=== PATIENT | male | born 1980 | race Caucasian/White ===

== ENCOUNTER 2021-03-21 19:58 | Inpatient (IN) | payer OTHER ==
[~2021-03-21] VITALS: Ht 185.4 cm; Wt 84.8 kg
[2021-03-21] MEDS ORDERED: Z GUARD REMEDY PASTE 57 GM TUBE TOP PRN (23:30)
[2021-03-21 23:53] VITALS: BP 115/73
[2021-03-22] MEDS ORDERED: NALO4SPR NS (00:02)
[2021-03-22] MEDS ORDERED: MELA5TAB PO (00:02)
[2021-03-22] MEDS ORDERED: ACET-2030 PO (00:02)
[2021-03-22] MEDS ORDERED: GABA600T12 PO (00:02)
[2021-03-22] MEDS ORDERED: POLY119P2 PO (00:02)
[2021-03-22] MEDS ORDERED: TRAZ-182 PO (00:02)
[2021-03-22] MEDS ORDERED: ATOR40TA PO (00:02)
[2021-03-22] MEDS ORDERED: ASPI81TA31 PO (00:02)
[2021-03-22] MEDS ORDERED: LOSA50TA39 PO (00:02)
[2021-03-22] MEDS ORDERED: SENN-261 PO (00:02)
[2021-03-22] MEDS ORDERED: METH-806 PO (00:02)
[2021-03-22] MEDS ORDERED: DOXY-326 PO (00:02)
[2021-03-22] MEDS ORDERED: ONDA4TAB11 PO (00:15)
[2021-03-22] MEDS ORDERED: AMLO-212 PO (00:15)
[2021-03-22] MEDS ORDERED: FAMO-132 PO (00:15)
[2021-03-22 05:13] VITALS: BP 118/62
--- NOTE | 2021-03-22 06:17 | NUR ---
At 2308H, admitted 40 y/o male to rehab with dx of s/p right BKA. He is alert and oriented x4, able to make needs known. Pain tolerable at this time, pain medication given in [facility] before transfer. Admission process done and belongings list filled up. Medications from patient put in sealed bag, signed by pt, and will be given to pharmacy. He refused skin assessment on right BKA and wants it done later in AM. MRSA swab taken and sent to lab. Fred Singleton NP informed of admission and med recon. Dr. Bell also made aware of admission. Urinal at bedside. All needs attended. Call light placed within reach. Will endorse to next shift for continuity of care.
[2021-03-22] MEDS ORDERED: FAMOTIDINE 20 MG TABLET PO PRN (09:15)
[2021-03-22] MEDS ORDERED: ONDANSETRON ODT 4 MG TAB.RAPDIS SL PRN (09:15)
[2021-03-22] MEDS ORDERED: DEXTROSE 50% 50 ML DISP.SYRIN IV PRN (09:45)
[2021-03-22] MEDS ORDERED: INSU3INS6 SQ (09:52)
[2021-03-22] MEDS ORDERED: METF-440 PO (09:58)
[2021-03-22] MEDS ORDERED: DORZ10DR13 EACHEYE (09:59)
[2021-03-22 10:00] LABS: HEMATOCRIT 31.6 % (36.7-47.1); MEAN CORPUSCULAR HEMOGLOBIN 30.4 uug (23.8-33.4); MEAN CORPUSCULAR VOLUME 89.4 fL (73.0-96.2); PLATELET COUNT (AUTO) 628 K/uL (152-348)
[2021-03-22] MEDS: METHOCARBAMOL 500 MG TABLET PO SCH ×3 (10:00→17:27)
[2021-03-22] MEDS: MIRALAX 17 GM POWD.PACK PO SCH ×3 (10:00→17:28)
[2021-03-22] MEDS: OXYCODONE HCL 5 MG TABLET PO PRN ×2 (10:00→14:51)
[2021-03-22] MEDS: GABAPENTIN 400 MG CAPSULE PO SCH ×3 (10:01→17:27)
[2021-03-22] MEDS: SENNOSIDES 1 TABLET PO SCH (10:01)
[2021-03-22 10:21] LABS: BILIRUBIN,TOTAL 0.2 mg/dL (0.2-1.0); CREATININE 0.7 mg/dL (0.6-1.3); POTASSIUM 4.4 mmol/L (3.5-5.1)
[2021-03-22] MEDS: MORPHINE SULFATE SR 15 MG TABLET.SA PO SCH ×2 (11:14→22:43)
[2021-03-22] MEDS: BLOOD SUGAR DIAGNOSTIC 1 EACH STRIP VI SCH ×3 (11:18→21:00)
[2021-03-22] MEDS: INSULIN REGULAR, HUMAN 300 UNIT/3 ML VIAL SQ PRN ×2 (11:20→16:52)
[2021-03-22] MEDS ORDERED: INSU100I34 SQ (13:54)
[2021-03-22] MEDS ORDERED: INSULIN LISPRO 300 UNIT/3 ML VIAL SQ PRN (14:00)
[2021-03-22 15:49] VITALS: BP 108/71
[2021-03-22] MEDS ORDERED: DORZOLAMIDE/TIMOLOL OPHT DROP 10 ML BOTTLE EACHEYE SCH (17:00)
[2021-03-22] MEDS ORDERED: METFORMIN HCL 500 MG TABLET PO SCH (17:00)
--- NOTE | 2021-03-22 18:33 | NUR ---
patient remained stable during the shift. no discomfort identified. Photo taken of the incision site, and in chart. Incision site, intact and no bleeding identified. Informed dietary patient is a vegetarian. all due meds given. Needs attended. kept safe and frequent checks done. Kept comfortable. Will continue to monitor.
--- NOTE | 2021-03-22 18:35 | NUR ---
Insulin given per sliding scale during the shift as ordered. Will continue to monitor.
[2021-03-22 20:06] VITALS: BP 115/67
[2021-03-22] MEDS ORDERED: Medication Not On Formulary EA (Melatonin 10 MG) PO SCH (21:00)
[2021-03-22] MEDS: TRAZODONE 50 MG TABLET PO SCH (21:01)
[2021-03-22] MEDS: MELATONIN 3 MG TABLET PO SCH (21:01)
[2021-03-22] MEDS: INSULIN GLARGINE,HUM 300 UNITS/3 ML CARTRIDGE SQ SCH (21:04)
[2021-03-22] MEDS: INSULIN REGULAR, HUMAN 300 UNITS/3 ML VIAL SQ PRN (21:05)
[2021-03-23 04:06] VITALS: BP 100/52
[2021-03-23] MEDS: OXYCODONE HCL 5 MG TABLET PO PRN ×2 (05:28→14:46)
--- NOTE | 2021-03-23 06:41 | NUR ---
PATIENT REMAINED COMFORTABLE AND STABLE DURING THE SHIFT. OXYCODONE PRN GIVEN. REFUSED ACCUCHECK IN THE AM, REQUESTING TO HAV EIT DONE AFTER 0730H. INCISION SITE REMAINED INTACT, NO BLEEDING NOTED. KEPT CALL LIGHT WITHIN REACH. ALL DUE MEDS GIVEN ORDERED. SAFETY PRECAUTION MAINTAINED. FREQUENT CHECKS DONE. ALL NEEDS ATTENDED. ENDORSED TO THE NEXT SHIFT FOR CONTINUITY OF CARE.
[2021-03-23 07:30] VITALS: BP 104/68
[2021-03-23] MEDS: BLOOD SUGAR DIAGNOSTIC 1 EACH STRIP VI SCH ×4 (07:43→20:12)
[2021-03-23] MEDS: INSULIN REGULAR, HUMAN 300 UNIT/3 ML VIAL SQ PRN ×3 (07:50→16:52)
[2021-03-23] MEDS: METHOCARBAMOL 500 MG TABLET PO SCH ×3 (08:13→16:34)
[2021-03-23] MEDS: GABAPENTIN 400 MG CAPSULE PO SCH ×3 (08:13→16:34)
[2021-03-23] MEDS: MORPHINE SULFATE SR 15 MG TABLET.SA PO SCH ×2 (08:13→20:10)
[2021-03-23] MEDS: LOSARTAN POTASSIUM 50 MG TABLET PO SCH (08:16)
[2021-03-23] MEDS: MIRALAX 17 GM POWD.PACK PO SCH ×2 (08:16→16:49)
[2021-03-23] MEDS: SENNOSIDES 1 TABLET PO SCH (08:17)
[2021-03-23] MEDS: AMLODIPINE 5 MG TABLET PO SCH (08:17)
--- NOTE | 2021-03-23 14:20 | NUR ---
Received patient alert and oriented x 4, denies of any pain at this time, no s/s of distress. Able to follow simple commands. Patient in room air, saturating at 95% Patient went off the unit for an hour for therapy, tolerated well. All needs met in a timely manner. Will continue to monitor.
[2021-03-23 16:00] VITALS: BP 114/79
[2021-03-23] MEDS: MELATONIN 3 MG TABLET PO SCH (20:09)
[2021-03-23] MEDS: INSULIN REGULAR, HUMAN 300 UNITS/3 ML VIAL SQ PRN (20:17)
[2021-03-23] MEDS: INSULIN GLARGINE,HUM 300 UNITS/3 ML CARTRIDGE SQ SCH (20:17)
[2021-03-23 20:20] VITALS: BP 107/69
[2021-03-23] MEDS: TRAZODONE 50 MG TABLET PO SCH (21:17)
[2021-03-23] MEDS: MUPIROCIN 2% OINT 22 GM TUBE NS SCH (21:18)
[2021-03-23] MEDS ORDERED: MUPIROCIN 2% OINT 22 GM TUBE ONE (21:21)
--- NOTE | 2021-03-23 21:29 | NUR ---
Received pt resting in bed. AAO x4. No acute distress noted. Due meds given as ordered. Blood sugar 391, insulin coverage given as per sliding scale. Assisted to the bathroom using walker. Pt safely back in bed. Safety measures maintained. Call light within reach. Will continue to monitor.
--- NOTE | 2021-03-23 21:33 | NUR ---
Received MRSA nares result, positive. Notified [employer] SIGNAL INTELLIGENCE ANALYST with order for Bactroban oint BID x 7 days. Carried out order.
[2021-03-24] MEDS: OXYCODONE HCL 5 MG TABLET PO PRN ×3 (04:09→16:26)
[2021-03-24 04:31] VITALS: BP 100/62
[2021-03-24 07:51] VITALS: BP 109/79
[2021-03-24] MEDS: MUPIROCIN 2% OINT 22 GM TUBE NS SCH ×2 (08:01→21:07)
[2021-03-24] MEDS: BLOOD SUGAR DIAGNOSTIC 1 EACH STRIP VI SCH ×4 (08:01→21:02)
[2021-03-24] MEDS: GABAPENTIN 400 MG CAPSULE PO SCH ×3 (08:02→17:06)
[2021-03-24] MEDS: SENNOSIDES 1 TABLET PO SCH ×2 (08:02→09:00)
[2021-03-24] MEDS: MIRALAX 17 GM POWD.PACK PO SCH ×3 (08:02→16:28)
[2021-03-24] MEDS: METHOCARBAMOL 500 MG TABLET PO SCH ×3 (08:03→17:06)
[2021-03-24] MEDS: MORPHINE SULFATE SR 15 MG TABLET.SA PO SCH ×2 (08:04→20:58)
[2021-03-24] MEDS: AMLODIPINE 5 MG TABLET PO SCH (08:15)
[2021-03-24] MEDS: LOSARTAN POTASSIUM 50 MG TABLET PO SCH (08:15)
[2021-03-24] MEDS: INSULIN REGULAR, HUMAN 300 UNIT/3 ML VIAL SQ PRN ×2 (11:46→16:28)
--- NOTE | 2021-03-24 11:57 | NUR ---
INDIVIDUALIZED PLAN OF CARE
[2021-03-24 15:24] VITALS: BP 112/74
--- NOTE | 2021-03-24 18:00 | NUR ---
Patient remains alert, oriented x4, not in any form of distress. Complained of pain on right leg given PRN pain medication as ordered with noted relief. Patient refused wound assessment and dressing change, explained risks and benefits but patient still refused. Assisted with his needs. Call light and frequently used items placed within patient's reach.
[2021-03-24 20:00] VITALS: BP 107/60
[2021-03-24] MEDS: TRAZODONE 50 MG TABLET PO SCH (20:57)
[2021-03-24] MEDS: MELATONIN 3 MG TABLET PO SCH (20:57)
[2021-03-24] MEDS: INSULIN REGULAR, HUMAN 300 UNITS/3 ML VIAL SQ PRN (21:04)
[2021-03-24] MEDS: INSULIN GLARGINE,HUM 300 UNITS/3 ML CARTRIDGE SQ SCH (21:05)
[2021-03-25 04:00] VITALS: BP 104/60
[2021-03-25] MEDS: BLOOD SUGAR DIAGNOSTIC 1 EACH STRIP VI SCH ×4 (06:38→20:54)
[2021-03-25] MEDS: OXYCODONE HCL 5 MG TABLET PO PRN ×3 (06:41→22:41)
[2021-03-25 08:00] VITALS: BP 135/68
[2021-03-25] MEDS: METHOCARBAMOL 500 MG TABLET PO SCH ×3 (08:32→17:12)
[2021-03-25] MEDS: GABAPENTIN 400 MG CAPSULE PO SCH ×3 (08:32→17:12)
[2021-03-25] MEDS: SENNOSIDES 1 TABLET PO SCH (08:33)
[2021-03-25] MEDS: MIRALAX 17 GM POWD.PACK PO SCH ×2 (08:41→17:00)
[2021-03-25] MEDS: LOSARTAN POTASSIUM 50 MG TABLET PO SCH (08:41)
[2021-03-25] MEDS: MUPIROCIN 2% OINT 22 GM TUBE NS SCH ×2 (08:49→20:58)
[2021-03-25] MEDS: AMLODIPINE 5 MG TABLET PO SCH (09:00)
[2021-03-25] MEDS: MORPHINE SULFATE SR 15 MG TABLET.SA PO SCH ×2 (09:47→20:52)
[2021-03-25] MEDS: INSULIN REGULAR, HUMAN 300 UNIT/3 ML VIAL SQ PRN (11:45)
[2021-03-25 16:17] VITALS: BP 118/79
[2021-03-25 20:07] VITALS: BP 109/72
[2021-03-25] MEDS: TRAZODONE 50 MG TABLET PO SCH (20:51)
[2021-03-25] MEDS: MELATONIN 3 MG TABLET PO SCH (20:51)
[2021-03-25] MEDS: INSULIN GLARGINE,HUM 300 UNITS/3 ML CARTRIDGE SQ SCH (20:55)
[2021-03-25] MEDS: INSULIN REGULAR, HUMAN 300 UNITS/3 ML VIAL SQ PRN (20:57)
[2021-03-26 04:25] VITALS: BP 108/67
[2021-03-26] MEDS: BLOOD SUGAR DIAGNOSTIC 1 EACH STRIP VI SCH ×4 (07:09→21:37)
[2021-03-26] MEDS: OXYCODONE HCL 5 MG TABLET PO PRN ×3 (07:12→16:37)
[2021-03-26 07:30] VITALS: BP 105/69
[2021-03-26] MEDS: GABAPENTIN 400 MG CAPSULE PO SCH ×3 (08:37→16:37)
[2021-03-26] MEDS: MORPHINE SULFATE SR 15 MG TABLET.SA PO SCH ×2 (08:38→21:31)
[2021-03-26] MEDS: MUPIROCIN 2% OINT 22 GM TUBE NS SCH ×2 (08:38→21:54)
[2021-03-26] MEDS: LOSARTAN POTASSIUM 50 MG TABLET PO SCH (08:38)
[2021-03-26] MEDS: METHOCARBAMOL 500 MG TABLET PO SCH ×3 (08:38→16:37)
[2021-03-26] MEDS: SENNOSIDES 1 TABLET PO SCH (08:39)
[2021-03-26] MEDS: MIRALAX 17 GM POWD.PACK PO SCH ×2 (08:40→16:37)
[2021-03-26] MEDS: INSULIN REGULAR, HUMAN 300 UNIT/3 ML VIAL SQ PRN ×2 (11:44→21:58)
--- NOTE | 2021-03-26 13:04 | NUR ---
INTERDISCIPLINARY TEAM CONFERENCE
[2021-03-26 16:05] VITALS: BP 101/63
--- NOTE | 2021-03-26 18:27 | NUR ---
PATIENT REMAINED STABLE DURING THE SHIFT. REPORTED ACCUCHECK OF 51, 56 MG/DL TO DR MELGAR, WENT UP TO 79MG/DL AFTER 12OZ ON ORANGE JUICE, ORDER TO CHANGE FROM AGGRESSIVE TO MILD SLIDING SCALE. PATIENT IS ALERT, NO CHANGE OF MENTAL STATUS IDENTIFIED. SKIN INTACT, NO BLEEDING TO THE INCISION SITE. ALL NEEDS ATTENDED. ASPIRATION PRECAUTION MAINTAINED. NO DISTRESS IDENTIFIED. SAFETY PRECAUTION MAINTAINED. WILL ENDORSE TO THE NEXT SHIFT FOR CONTINUITY OF CARE.
[2021-03-26] MEDS ORDERED: DEXTROSE 50% 50 ML DISP.SYRIN IV PRN (18:45)
[2021-03-26 20:00] VITALS: BP 109/66
[2021-03-26] MEDS: MELATONIN 3 MG TABLET PO SCH (21:30)
[2021-03-26] MEDS: TRAZODONE 50 MG TABLET PO SCH (21:32)
[2021-03-26] MEDS: INSULIN GLARGINE,HUM 300 UNITS/3 ML CARTRIDGE SQ SCH (21:48)
--- NOTE | 2021-03-27 01:49 | NUR ---
Pt. is received awake in his room. Pt. is alert, oriented x 4 to person, place, environment. Pt. affect is demanding, accusatory, anxious, impatient towards staff. Blood glucose is 380, Lantus 21 units given as schedule, and 10 units of regular insulin given per sliding scale, orange juice provided. Compliant with medications. Right below knee amputation, no signs of infection. Pt. ambulates with crutches. Continent of bladder and bowel. Fall and safety precautions implemented.
[2021-03-27 04:18] VITALS: BP 101/59
[2021-03-27] MEDS: OXYCODONE HCL 5 MG TABLET PO PRN ×3 (06:05→16:34)
--- NOTE | 2021-03-27 06:08 | NUR ---
Patient is given Oxycodone 10 mg at 06:05 for rigth knee pain rated 9 on the scale of 1 to 10, will be monitored for effectiveness.
[2021-03-27] MEDS: BLOOD SUGAR DIAGNOSTIC 1 EACH STRIP VI SCH ×4 (06:53→20:27)
[2021-03-27 07:55] LABS: HEMATOCRIT 32.4 % (36.7-47.1); MEAN CORPUSCULAR HEMOGLOBIN 30.2 uug (23.8-33.4); MEAN CORPUSCULAR VOLUME 89.5 fL (73.0-96.2); PLATELET COUNT (AUTO) 437 K/uL (152-348)
[2021-03-27 08:11] LABS: BILIRUBIN,TOTAL 0.2 mg/dL (0.2-1.0); CREATININE 0.7 mg/dL (0.6-1.3); MAGNESIUM 1.9 mg/dL (1.8-2.4); PHOSPHOROUS 4.8 mg/dL (2.5-4.9); POTASSIUM 4.1 mmol/L (3.5-5.1); TOTAL PROTEIN, SERUM 6.6 g/dL (6.4-8.2)
[2021-03-27] MEDS: METHOCARBAMOL 500 MG TABLET PO SCH ×3 (08:17→16:33)
[2021-03-27] MEDS: GABAPENTIN 400 MG CAPSULE PO SCH ×3 (08:18→16:33)
[2021-03-27] MEDS: SENNOSIDES 1 TABLET PO SCH (08:18)
[2021-03-27] MEDS: MIRALAX 17 GM POWD.PACK PO SCH ×2 (08:18→16:35)
[2021-03-27] MEDS: MORPHINE SULFATE SR 15 MG TABLET.SA PO SCH ×2 (08:18→20:22)
[2021-03-27] MEDS: LOSARTAN POTASSIUM 50 MG TABLET PO SCH (08:19)
[2021-03-27] MEDS: MUPIROCIN 2% OINT 22 GM TUBE NS SCH ×2 (08:19→20:22)
[2021-03-27 08:38] VITALS: BP 98/57
[2021-03-27 09:15] LABS: THYROID STIMULATING HORMONE 1.92 mIU/mL (0.358-3.740)
[2021-03-27] MEDS: INSULIN REGULAR, HUMAN 300 UNIT/3 ML VIAL SQ PRN ×3 (11:45→20:32)
[2021-03-27 15:21] VITALS: BP 111/75
--- NOTE | 2021-03-27 18:20 | NUR ---
patient remained stable during the shift. Assisted with all his needs. Kept call light within reach. All due meds given. No distress identified. Safety measures maintained. Dressing changed to the R BKA, no drainage noted, no bleeding identified. Insulin per sliding scale given x1 during the shift. pain medication given as ordered. Will endorse to the next shift for continuity of care.
[2021-03-27 20:00] VITALS: BP 107/73
[2021-03-27] MEDS: MELATONIN 3 MG TABLET PO SCH (20:22)
[2021-03-27] MEDS: TRAZODONE 50 MG TABLET PO SCH (20:22)
[2021-03-27] MEDS: INSULIN GLARGINE,HUM 300 UNITS/3 ML CARTRIDGE SQ SCH (20:33)
[2021-03-28] MEDS: OXYCODONE HCL 5 MG TABLET PO PRN ×2 (00:55→11:34)
[2021-03-28 04:00] VITALS: BP 107/75
--- NOTE | 2021-03-28 04:50 | NUR ---
AAOx4 OOB in wheelchair independently. Patient has a right BKA. Dressing intact. On pain management. MS contin 15mg given as scheduled. Needs attended. Will monitor patient. VSS. Voiding well in the urinal. No distress noted.
[2021-03-28] MEDS: MORPHINE SULFATE SR 15 MG TABLET.SA PO SCH ×3 (05:31→21:29)
[2021-03-28] MEDS: INSULIN REGULAR, HUMAN 300 UNIT/3 ML VIAL SQ PRN ×4 (05:44→21:00)
--- NOTE | 2021-03-28 06:27 | NUR ---
Awaken this am. MS contin given as scheduled. Patient accucheck 476 @ 0525 per patient's request. 10 units given per protocol. Will call MD. Dr Bertrand Briones paged, awaiting for answer. Answering service made aware for him to call back. Still no answer. Dr Thurston paged x2 still no answer. Texted him, no response yet. Accucheck repeated @ 0630 it was 473. die caster aware.Patient asymptomatic.
[2021-03-28] MEDS: BLOOD SUGAR DIAGNOSTIC 1 EACH STRIP VI SCH ×4 (06:37→20:51)
--- NOTE | 2021-03-28 07:30 | NUR ---
informed Dr. Otilia NP accucheck reading is 399mg/dL at 0730H, order to give 10units of insulin. Will continue to monitor.
[2021-03-28 07:40] VITALS: BP 97/47
[2021-03-28] MEDS: METHOCARBAMOL 500 MG TABLET PO SCH ×3 (08:18→16:33)
[2021-03-28] MEDS: GABAPENTIN 400 MG CAPSULE PO SCH ×3 (08:18→16:34)
[2021-03-28] MEDS: MUPIROCIN 2% OINT 22 GM TUBE NS SCH ×2 (08:18→21:01)
[2021-03-28] MEDS: MIRALAX 17 GM POWD.PACK PO SCH ×2 (08:18→16:33)
[2021-03-28] MEDS: SENNOSIDES 1 TABLET PO SCH (08:18)
[2021-03-28] MEDS: LOSARTAN POTASSIUM 50 MG TABLET PO SCH (08:19)
[2021-03-28 15:14] VITALS: BP 115/69
--- NOTE | 2021-03-28 18:08 | NUR ---
Patient remained stable during the shift, no acute distress [id number]. at 1200H, accucheck is 63mg/dL, no insulin coverage need, and at 1630H 277mg/dL insulin given per sliding scale. patient is alert/orientedx4, no changes in mental status. The patient refused dressing change to the incision site, no drainage noted. All due meds given. Kept safe. Call light within reach. No distress identified. Will endorse to the next shift for continuity of care.
--- NOTE | 2021-03-28 19:30 | NUR ---
NSG: Received patient alert and oriented x 4, sitting in w/c in the [address] with sister. patient denies any pain at this time, no s/s of distress. Able to follow commands.v/s wnl. Patient went off the unit with sister for 30 minutes. Will continue to monitor.
[2021-03-28 20:42] VITALS: BP 105/72
[2021-03-28] MEDS: MELATONIN 3 MG TABLET PO SCH (20:52)
[2021-03-28] MEDS: TRAZODONE 50 MG TABLET PO SCH (20:52)
[2021-03-28] MEDS: INSULIN GLARGINE,HUM 300 UNITS/3 ML CARTRIDGE SQ SCH (20:57)
--- NOTE | 2021-03-28 21:30 | NUR ---
due meds and insulin sliding scale given. hs snack given. patient resting in bed comfortably.
[2021-03-29 04:33] VITALS: BP 101/64
[2021-03-29] MEDS: MORPHINE SULFATE SR 15 MG TABLET.SA PO SCH ×3 (05:18→21:24)
--- NOTE | 2021-03-29 06:07 | NUR ---
NSG: Patient remain alert, oriented x4. denies pain or discomfort at this time. Patient refused wound assessment and dressing change, Assisted with his needs. Call light and frequently used items placed within patient's reach. resting in bed comfortably.continue plan of care.
[2021-03-29] MEDS: BLOOD SUGAR DIAGNOSTIC 1 EACH STRIP VI SCH ×4 (06:21→20:29)
[2021-03-29] MEDS: INSULIN REGULAR, HUMAN 300 UNIT/3 ML VIAL SQ PRN ×3 (07:49→20:24)
[2021-03-29] MEDS: OXYCODONE HCL 5 MG TABLET PO PRN ×2 (08:01→16:38)
[2021-03-29] MEDS: GABAPENTIN 400 MG CAPSULE PO SCH ×3 (08:02→16:32)
[2021-03-29] MEDS: SENNOSIDES 1 TABLET PO SCH (08:02)
[2021-03-29] MEDS: METHOCARBAMOL 500 MG TABLET PO SCH ×3 (08:02→16:32)
[2021-03-29] MEDS: MUPIROCIN 2% OINT 22 GM TUBE NS SCH ×2 (08:02→20:20)
[2021-03-29] MEDS: MIRALAX 17 GM POWD.PACK PO SCH ×3 (08:02→16:32)
[2021-03-29] MEDS: LOSARTAN POTASSIUM 25 MG TABLET PO SCH ×2 (08:03→08:22)
[2021-03-29 08:20] VITALS: BP 106/68
--- NOTE | 2021-03-29 15:36 | NUR ---
patient is alert, oriented x4, no events noted, offered patient to assess his surgery site below knee, patient stated it is clean and dry, inspected foam dressing, intact, no discharge, clean and dry.
[2021-03-29 16:47] VITALS: BP 96/65
--- NOTE | 2021-03-29 19:35 | NUR ---
NSG: Received patient alert and oriented x 4, lying on bed watching tv. patient denies any pain at this time, no s/s of distress. Able to follow commands.v/s wnl. Will continue to monitor.
[2021-03-29] MEDS: MELATONIN 3 MG TABLET PO SCH (20:20)
[2021-03-29] MEDS: TRAZODONE 50 MG TABLET PO SCH (20:20)
[2021-03-29] MEDS: INSULIN GLARGINE,HUM 300 UNITS/3 ML CARTRIDGE SQ SCH (20:23)
[2021-03-29 20:34] VITALS: BP 104/64
[2021-03-30 04:57] VITALS: BP 101/67
[2021-03-30] MEDS: MORPHINE SULFATE SR 15 MG TABLET.SA PO SCH ×3 (06:11→21:53)
[2021-03-30] MEDS: BLOOD SUGAR DIAGNOSTIC 1 EACH STRIP VI SCH ×4 (06:11→21:55)
--- NOTE | 2021-03-30 06:32 | NUR ---
NSG: Patient remain alert, oriented x4. denies pain or discomfort at this time. Patient refused wound assessment and dressing change. Call light and frequently used items placed within patient's reach. resting in bed comfortably.continue plan of care.
--- NOTE | 2021-03-30 07:00 | NUR ---
PATIENT IS ALERT/ORIENTEDX4, NO DISTRESS IDENTIFIED. DRESSING INTACT, NO DRAINAGE NOTED. WILL CONTINUE TO MONITOR.
[2021-03-30 07:32] VITALS: BP 106/71
[2021-03-30] MEDS: LOSARTAN POTASSIUM 25 MG TABLET PO SCH (08:20)
[2021-03-30] MEDS: MUPIROCIN 2% OINT 22 GM TUBE NS SCH ×2 (08:20→21:53)
[2021-03-30] MEDS: MIRALAX 17 GM POWD.PACK PO SCH ×2 (08:20→16:45)
[2021-03-30] MEDS: GABAPENTIN 400 MG CAPSULE PO SCH ×3 (08:20→16:45)
[2021-03-30] MEDS: METHOCARBAMOL 500 MG TABLET PO SCH ×3 (08:21→16:44)
[2021-03-30] MEDS: SENNOSIDES 1 TABLET PO SCH (08:21)
[2021-03-30] MEDS: INSULIN REGULAR, HUMAN 300 UNIT/3 ML VIAL SQ PRN ×3 (11:22→21:57)
[2021-03-30 15:37] VITALS: BP 98/61
--- NOTE | 2021-03-30 18:22 | NUR ---
PATIENT REMAINED STABLE. OFFERED TO CHANGE DRESSING, REFUSED TO BE CHANGED, NO DRAINAGE IDENTIFIED, DRESSING REMAINED DRY THE WHOLE SHIFT. NO DISTRESS IDENTIFIED DURING THE SHIFT. SAFETY MEASURES MAINTAINED. KEPT CALL LIGHT WITHIN REACH. ALL NEEDS ATTENDED. ALL DUE MEDS GIVEN. FREQUENT ROUNDING DONE. WILL ENDORSE TO THE NEXT SHIFT FOR CONTINUITY OF CARE.
--- NOTE | 2021-03-30 19:30 | NUR ---
RECEIVED PT AWAKE, ALERT AND ORIENTEDX4. PT IN NO ACUTE DISTRESS. PT CAN MAKE HIS NEEDS KNOWN. SAFETY AND COMFORT PROVIDED. WILL CONTINUE TO MONITOR.
[2021-03-30 20:14] VITALS: BP 107/59
--- NOTE | 2021-03-30 21:30 | NUR ---
PT BLOOD SUGAR WAS 431. INSULIN PROTOCOL INITIATED. NOTIFY DR. SVETLANA FRAZIER. NO NEW ORDERS. PT IN NO ACUTE DISTRESS. PT NO SIGNS AND SYMPTOMS OF HYPERGLYCEMIA. WILL CONTINUE TO MONITOR.
[2021-03-30] MEDS: MELATONIN 3 MG TABLET PO SCH (21:53)
[2021-03-30] MEDS: TRAZODONE 50 MG TABLET PO SCH (21:53)
[2021-03-30] MEDS: INSULIN GLARGINE,HUM 300 UNITS/3 ML CARTRIDGE SQ SCH (21:54)
[2021-03-31 04:20] VITALS: BP 116/77
[2021-03-31] MEDS: MORPHINE SULFATE SR 15 MG TABLET.SA PO SCH ×3 (05:38→21:47)
[2021-03-31] MEDS: BLOOD SUGAR DIAGNOSTIC 1 EACH STRIP VI SCH ×4 (06:36→21:52)
[2021-03-31] MEDS: INSULIN REGULAR, HUMAN 300 UNIT/3 ML VIAL SQ PRN ×4 (06:39→21:53)
--- NOTE | 2021-03-31 06:40 | NUR ---
BLOOD SUGAR IS 405. SLIDING SCALE COVERAGE GIVEN EARLY. WILL ENDORSE ACCORDINGLY. PT DENIES ANY SIGNS /SYMPTOMS OF HYPERGLYCEMIA.
--- NOTE | 2021-03-31 07:20 | NUR ---
Notify portfolio consultant regarding pt blood sugar. waiting for reply. Endorse to incoming nurse. Pt in no acute distress. Pt stable.
[2021-03-31] MEDS: LOSARTAN POTASSIUM 25 MG TABLET PO SCH (09:00)
[2021-03-31] MEDS: MIRALAX 17 GM POWD.PACK PO SCH ×2 (09:00→16:58)
[2021-03-31] MEDS: METHOCARBAMOL 500 MG TABLET PO SCH ×3 (09:47→16:58)
[2021-03-31] MEDS: SENNOSIDES 1 TABLET PO SCH (09:47)
[2021-03-31] MEDS: GABAPENTIN 400 MG CAPSULE PO SCH ×3 (09:48→16:59)
[2021-03-31 12:00] VITALS: BP 96/57
[2021-03-31 16:11] VITALS: BP 94/58
--- NOTE | 2021-03-31 18:28 | NUR ---
PATIENT REMAINED STABLE DURING THE SHIFT. DRESSING CHANGED, INTACT, NO BLEEDING IDENTIFIED. ALL DUE MEDS GIVEN ORDERED. ALL NEEDS ATTENDED. KEPT CALL LIGHT WITHIN REACH. FREQUENT CHECKS DONE. SAFETY MEASURES MAINTAINED. ENDORSED TO THE NEXT SHIFT.
[2021-03-31 20:06] VITALS: BP 108/72
[2021-03-31] MEDS: MELATONIN 3 MG TABLET PO SCH (21:48)
[2021-03-31] MEDS: TRAZODONE 50 MG TABLET PO SCH (21:49)
[2021-03-31] MEDS: INSULIN GLARGINE,HUM 300 UNITS/3 ML CARTRIDGE SQ SCH (21:52)
--- NOTE | 2021-04-01 03:51 | NUR ---
Starting of shift Received patient alert and oriented x 4, lying on bed watching tv. All due medication administered as ordered, Blood sugar at 2100 374 mg/dl, insulin sliding scale and Lantus administered as ordered, no s/s of hypo or hyperglycemia noted. Patient c/o moderate pain right side of the body at 2140 routine MS Contin administered as ordered, reassess the pain, relieved pain, sleeping with no s/s of distress. Able to follow commands. Will continue to monitor.
[2021-04-01 04:09] VITALS: BP 109/72
[2021-04-01] MEDS: MORPHINE SULFATE SR 15 MG TABLET.SA PO SCH ×3 (06:04→22:02)
[2021-04-01] MEDS: BLOOD SUGAR DIAGNOSTIC 1 EACH STRIP VI SCH ×4 (06:44→20:23)
[2021-04-01 08:00] VITALS: BP 110/72
[2021-04-01] MEDS: INSULIN REGULAR, HUMAN 300 UNIT/3 ML VIAL SQ PRN ×3 (08:23→20:24)
[2021-04-01] MEDS: GABAPENTIN 400 MG CAPSULE PO SCH ×3 (08:25→16:27)
[2021-04-01] MEDS: SENNOSIDES 1 TABLET PO SCH (08:25)
[2021-04-01] MEDS: METHOCARBAMOL 500 MG TABLET PO SCH ×3 (08:25→16:27)
[2021-04-01] MEDS: MIRALAX 17 GM POWD.PACK PO SCH ×2 (08:26→16:27)
[2021-04-01] MEDS: LOSARTAN POTASSIUM 25 MG TABLET PO SCH (08:27)
[2021-04-01 16:00] VITALS: BP 96/54
--- NOTE | 2021-04-01 18:12 | NUR ---
PATIENT REMAINED STABLE DURING THE SHIFT. NO CONCERNS IDENTIFIED. KEPT SAFE. FREQUENT CHECKS DONE. ALL DUE MEDS GIVEN ORDERED. ALL NEEDS ATTENDED. CALL LIGHT WITHIN REACH. WILL ENDORSE TO THE NEXT SHIFT FOR CONTINUITY OF CARE.
[2021-04-01 20:00] VITALS: BP 100/67
[2021-04-01] MEDS: MELATONIN 3 MG TABLET PO SCH (20:20)
[2021-04-01] MEDS: TRAZODONE 50 MG TABLET PO SCH (20:22)
[2021-04-01] MEDS: INSULIN GLARGINE,HUM 300 UNITS/3 ML CARTRIDGE SQ SCH (20:23)
--- NOTE | 2021-04-01 22:27 | NUR ---
Received pt resting in bed and watching tv. AAO x4. No acute distress noted. Medicated x1 for pain. Pt noted to be sometimes irritable. Refused picture of right BKA. Due meds given as ordered. Safety measures maintained. Bed alarm on. Call light within reach. Will continue to monitor.
[2021-04-02 04:00] VITALS: BP 107/66
[2021-04-02] MEDS: MORPHINE SULFATE SR 15 MG TABLET.SA PO SCH ×3 (05:53→21:21)
--- NOTE | 2021-04-02 07:07 | NUR ---
Pt refused blood sugar this morning, but would rather check it during breakfast time. Will endorse accordingly to AM shift.
[2021-04-02] MEDS: BLOOD SUGAR DIAGNOSTIC 1 EACH STRIP VI SCH ×4 (07:30→20:31)
[2021-04-02 07:34] VITALS: BP 106/67
[2021-04-02] MEDS: GABAPENTIN 400 MG CAPSULE PO SCH ×3 (09:03→16:53)
[2021-04-02] MEDS: SENNOSIDES 1 TABLET PO SCH (09:03)
[2021-04-02] MEDS: LOSARTAN POTASSIUM 25 MG TABLET PO SCH (09:04)
[2021-04-02] MEDS: MIRALAX 17 GM POWD.PACK PO SCH ×2 (09:05→16:53)
[2021-04-02] MEDS: METHOCARBAMOL 500 MG TABLET PO SCH ×3 (09:07→16:53)
[2021-04-02 15:08] VITALS: BP 102/63
--- NOTE | 2021-04-02 15:18 | NUR ---
INTERDISCIPLINARY TEAM CONFERENCE
[2021-04-02] MEDS: INSULIN REGULAR, HUMAN 300 UNIT/3 ML VIAL SQ PRN ×2 (17:03→20:33)
[2021-04-02 20:15] VITALS: BP 93/57
[2021-04-02] MEDS: MELATONIN 3 MG TABLET PO SCH (20:24)
[2021-04-02] MEDS: TRAZODONE 50 MG TABLET PO SCH (20:24)
[2021-04-02] MEDS: INSULIN GLARGINE,HUM 300 UNITS/3 ML CARTRIDGE SQ SCH (20:32)
[2021-04-03 04:00] VITALS: BP 105/60
[2021-04-03] MEDS: MORPHINE SULFATE SR 15 MG TABLET.SA PO SCH ×3 (06:00→22:15)
--- NOTE | 2021-04-03 06:46 | NUR ---
Pt slept throughout the night, easily arousable for care and able to make needs known. He is continent to B&B. BRP. All due meds given on time and tolerated well. Blood sugar check refused and wants in taken at 0730H. All needs attended. Call light placed within reach. Frequent visual checks done. Will endorse to next shift for continuity of care.
[2021-04-03 06:49] LABS: HEMATOCRIT 33.2 % (36.7-47.1); MEAN CORPUSCULAR HEMOGLOBIN 30.4 uug (23.8-33.4); MEAN CORPUSCULAR VOLUME 90.5 fL (73.0-96.2); PLATELET COUNT (AUTO) 249 K/uL (152-348)
[2021-04-03 07:02] LABS: CREATININE 0.8 mg/dL (0.6-1.3); MAGNESIUM 1.9 mg/dL (1.8-2.4); PHOSPHOROUS 5.8 mg/dL (2.5-4.9); POTASSIUM 4.4 mmol/L (3.5-5.1)
[2021-04-03 07:30] VITALS: BP 78/43
[2021-04-03] MEDS: BLOOD SUGAR DIAGNOSTIC 1 EACH STRIP VI SCH ×4 (07:30→20:45)
[2021-04-03] MEDS: GABAPENTIN 400 MG CAPSULE PO SCH ×3 (09:51→17:32)
[2021-04-03] MEDS: LOSARTAN POTASSIUM 25 MG TABLET PO SCH (09:51)
[2021-04-03] MEDS: SENNOSIDES 1 TABLET PO SCH (09:52)
[2021-04-03] MEDS: MIRALAX 17 GM POWD.PACK PO SCH ×2 (09:52→17:00)
[2021-04-03] MEDS: METHOCARBAMOL 500 MG TABLET PO SCH ×3 (09:52→17:32)
[2021-04-03] MEDS: INSULIN REGULAR, HUMAN 300 UNIT/3 ML VIAL SQ PRN ×3 (12:22→20:44)
[2021-04-03 16:00] VITALS: BP 89/54
[2021-04-03 20:00] VITALS: BP 92/58
[2021-04-03] MEDS: MELATONIN 3 MG TABLET PO SCH (20:37)
[2021-04-03] MEDS: TRAZODONE 50 MG TABLET PO SCH (20:37)
[2021-04-03] MEDS: INSULIN GLARGINE,HUM 300 UNITS/3 ML CARTRIDGE SQ SCH (20:44)
[2021-04-04 04:00] VITALS: BP 91/54
[2021-04-04] MEDS: MORPHINE SULFATE SR 15 MG TABLET.SA PO SCH ×2 (05:49→14:07)
--- NOTE | 2021-04-04 07:50 | NUR ---
Received pt resting in bed . AAO x4. No acute distress noted.Accucheck done BS =66 no coverage given. Pt noted calm quite with order to be D/C today. Safety measures maintained. Bed alarm on. Call light within reach. Will continue to monitor.
[2021-04-04 07:57] VITALS: BP 90/52
[2021-04-04] MEDS: BLOOD SUGAR DIAGNOSTIC 1 EACH STRIP VI SCH ×3 (07:57→17:28)
[2021-04-04] MEDS: LOSARTAN POTASSIUM 25 MG TABLET PO SCH (09:00)
[2021-04-04] MEDS: MIRALAX 17 GM POWD.PACK PO SCH ×2 (09:28→17:36)
[2021-04-04] MEDS: GABAPENTIN 400 MG CAPSULE PO SCH ×3 (09:28→17:37)
[2021-04-04] MEDS: SENNOSIDES 1 TABLET PO SCH (09:28)
[2021-04-04] MEDS: METHOCARBAMOL 500 MG TABLET PO SCH ×3 (09:35→17:36)
[2021-04-04] MEDS: INSULIN REGULAR, HUMAN 300 UNIT/3 ML VIAL SQ PRN ×2 (12:04→17:33)
[2021-04-04 16:00] VITALS: BP 101/62
--- NOTE | 2021-04-04 18:00 | NUR ---
PT discharge home by private car the Yellow cab.ALL instructions given to PT he verbalized understanding and retuned demonstration, pt left in medical stable condition do meds given all belonging, his own meds and equipment FWW, W/C and bed side commode given assisted him by W/C to the lobby arm band was removed .
== END 2021-04-04 17:30 | disposition home health service (06) | DRG 862 ==
PROVIDERS: ADMIT Physical Medicine & Rehabilitation Pain Medicine; ATTEND Physical Medicine & Rehabilitation Pain Medicine
DX: Z47.81 Encounter for orthopedic aftercare following surgical amputation (principal); M72.6 Necrotizing fasciitis; E10.52 Type 1 diabetes mellitus with diabetic peripheral angiopathy with gangrene; E10.40 Type 1 diabetes mellitus with diabetic neuropathy, unspecified; E44.0 Moderate protein-calorie malnutrition; I70.261 Atherosclerosis of native arteries of extremities with gangrene, right leg; D63.8 Anemia in other chronic diseases classified elsewhere; G54.6 Phantom limb syndrome with pain; I10 Essential (primary) hypertension; Z79.4 Long term (current) use of insulin; Z89.511 Acquired absence of right leg below knee; Z89.431 Acquired absence of right foot; Z88.0 Allergy status to penicillin
CPT/HCPCS: 36415; 83550; 83735; 84100; 84443; 85025; 97161; A4663; A6209; J1815